=== PATIENT | male | born 1985 | race Two or more races ===

== ENCOUNTER 2020-08-26 02:16 | Emergency (ER) | payer OTHER ==
[2020-08-26 02:29] VITALS: TEMP 98.3; BMI 27.8
[2020-08-26] MEDS ORDERED: MAG HYDROX/AL HYDROX/SIMETH 30 ML UNIT-DOSE CUP PO ONE (03:18)
[2020-08-26] MEDS ORDERED: SUCRALFATE 1 GM TABLET (FP) PO ONE (03:19)
[2020-08-26] MEDS ORDERED: FAMOTIDINE 10 MG TABLET PO ONE (03:19)
[2020-08-26] MEDS ORDERED: FAMOTIDINE 20 MG TABLET ONE ×2 (03:21→03:23)
[2020-08-26] MEDS ORDERED: SUCRALFATE 1 GM TABLET (FP) ONE (03:21)
[2020-08-26] MEDS ORDERED: MAG HYDROX/AL HYDROX/SIMETH 30 ML UNIT-DOSE CUP ONE (03:22)
[2020-08-26] MEDS ORDERED: BUPRENORPHINE/NALOXONE 8 MG/2 MG FILM PACKET SL ONE (05:26)
[2020-08-26] MEDS ORDERED: BUPRENORPHINE/NALOXONE 8 MG/2 MG FILM PACKET ONE (05:44)
[2020-08-26 05:58] VITALS: BP 118/76; PULSE 68
== END 2020-08-26 05:58 | disposition left against medical advice (07) ==
LOC: JER 02:16
DX: F11.220 Opioid dependence with intoxication, uncomplicated (principal); F10.920 Alcohol use, unspecified with intoxication, uncomplicated
CPT/HCPCS: 99283-25

== ENCOUNTER 2021-01-06 18:34 | Emergency (ER) | payer OTHER ==
[2021-01-06 18:50] VITALS: BP 117/75; PULSE 124; TEMP 99.1; BMI 28.5
== END 2021-01-06 19:31 | disposition home or self-care (01) ==
LOC: JER 18:34
DX: B34.9 Viral infection, unspecified (principal)
CPT/HCPCS: 87804; 99283-25; C9803; U0003; U0005

== ENCOUNTER 2021-07-05 21:22 | Emergency (ER) | payer OTHER ==
[2021-07-05 21:57] VITALS: BP 155/80; PULSE 107; TEMP 98.2; BMI 28.5
== END 2021-07-05 23:55 | disposition home or self-care (01) ==
LOC: JER 21:22
DX: J11.1 Influenza due to unidentified influenza virus with other respiratory manifestations (principal)
CPT/HCPCS: 99283-25